=== PATIENT | male | born 1970 | race Caucasian/White ===

== ENCOUNTER 2018-02-23 18:17 | Emergency (ER) | payer OTHER ==
[2018-02-23] MEDS ORDERED: ASPIRIN 325 MG TABLET ONE (18:45)
[2018-02-23] MEDS ORDERED: NITROGLYCERIN 1GM/1 INCH PACKET TD ONE (18:45)
[2018-02-23 18:48] LABS: EOSINOPHILS % (AUTO) 3.1 % (0.0-8.0); HEMATOCRIT 45.4 % (42-54); LYMPHOCYTES % (AUTO) 42.4 % (21.0-51.0); MEAN CORPUSCULAR HEMOGLOBIN 27.4 pg (27.0-33.0); MEAN CORPUSCULAR HGB CONC 32.2 g/dL (32.0-36.0); MEAN CORPUSCULAR VOLUME 85.2 fL (79-99); MONOCYTES % (AUTO) 7.7 % (3.0-13.0); NEUTROPHILS % (AUTO) 45.8 % (40.0-77.0); NUCLEATED RED BLOOD CELLS 0.1 % (0.0-0.19); PLATELET COUNT (AUTO) 252 K/uL (130-400); RED BLOOD CELL COUNT(AUTO) 5.32 MIL/uL (4.50-6.20); WHITE BLOOD COUNT (AUTO) 6.7 K/uL (4.8-10.8)
[2018-02-23] MEDS ORDERED: LIDOCAINE HCL 2% VISCOUS 15 ML UDCUP ONE (18:54)
[2018-02-23] MEDS ORDERED: FAMOTIDINE/PF 20 MG/2 ML VIAL IV ONE (18:55)
[2018-02-23] MEDS ORDERED: MAG HYDROX/AL HYDROX/SIMETH ES 30 ML SUSP UDCUP ONE (18:55)
[2018-02-23 19:12] LABS: INR 0.92 (0.85-1.15); PARTIAL THROMBOPLASTIN TIME 25.1 SEC (26.3-35.5); PROTHROMBIN TIME 9.7 SEC (9.6-11.6)
[2018-02-23 20:05] LABS: CREATININE 1.1 mg/dL (0.5-1.5); POTASSIUM 3.8 mmol/L (3.5-5.1)
[2018-02-23 20:10] LABS: ALBUMIN 3.9 g/dL (3.5-5.0); BILIRUBIN,TOTAL 0.4 mg/dL (0.2-1.0); TOTAL PROTEIN, SERUM 7.2 g/dL (6.0-8.3)
== END 2018-02-23 22:42 | disposition home or self-care (01) ==
LOC: EDH 18:17
DX: K29.60 Other gastritis without bleeding (principal); B96.81 Helicobacter pylori [H. pylori] as the cause of diseases classified elsewhere; Z98.890 Other specified postprocedural states
CPT/HCPCS: 36415; 80053; 84484 ×2; 85025; 85610; 85730; 86677; 93005; 96374; 99284; J3490